=== PATIENT | male | born 1985 | race Caucasian/White ===

== ENCOUNTER 2022-06-10 10:01 | Outpatient (CLI) | payer OTHER | END 2022-06-10 10:04 | disposition home or self-care (01) | LOC: LAB 10:01 | PROVIDERS: ATTEND Obstetrics & Gynecology | DX: Z20.818 Contact with and (suspected) exposure to other bacterial communicable diseases (principal); Z20.828 Contact with and (suspected) exposure to other viral communicable diseases ==

== ENCOUNTER 2023-07-06 16:37 | Emergency (ER) | payer OTHER ==
[~2023-07-06] VITALS: Ht 160 cm; Wt 74.4 kg
[2023-07-06 18:23] LABS: HEMATOCRIT 35.8 % (39.0-48.0); HEMOGLOBIN 12.4 g/dL (13-16.00); MEAN CELL VOLUME 87.7 fL (80.0-100.00); MEAN CORPUSCULAR HEMOGLOBIN 30.3 pg (27.00-32.0); MEAN CORPUSCULAR HGB CONC 34.6 g/dl (32.0-36.0); PLATELET COUNT 309 K/uL (150-450); RED BLOOD COUNT 4.08 M/uL (4.00-6.00); RED CELL DISTRIBUTION WIDTH 12.1 % (11.5-14.5)
[2023-07-06 18:44] LABS: ALBUMIN 3.3 gm/dL (3.4-5.0); BILIRUBIN TOTAL 1.04 mg/dL (0.3-1.2); CALCIUM 9.5 mg/dL (8.5-10.1); CREATININE SERUM 0.81 mg/dL (0.70-1.30); GFR 106.65; GLOBULINA 5.5 G/DL (2.4-3.5); POTASSIUM 3.32 mEq/L (3.5-5.1); TOTAL PROTEIN 8.8 gm/dL (6.4-8.2)
== END 2023-07-06 20:12 | disposition home or self-care (01) ==
LOC: ER 16:37
PROVIDERS: General Practice
DX: R53.81 Other malaise (principal); R05.9 Cough, unspecified; Z20.822 Contact with and (suspected) exposure to COVID-19

== ENCOUNTER 2024-08-26 21:09 | Emergency (ER) | payer OTHER ==
[~2024-08-26] VITALS: Ht 160 cm; Wt 72.6 kg
[2024-08-26] MEDS ORDERED: DIPHENOXYLATE HCL/ATROPINE 1 UDTAB TABLET PO ONE (22:00)
[2024-08-26] MEDS ORDERED: FAMOTIDINE/PF 20 MG in 0.9 % SODIUM CHLORIDE 8 ML IV PUSH STA (22:00)
[2024-08-26] MEDS ORDERED: ONDANSETRON HCL 2 MG/ML VIAL IV ONE (22:00)
[2024-08-26] MEDS ORDERED: 0.9 % SODIUM CHLORIDE 1,000 ML IV SCH (22:00)
[2024-08-26] MEDS ORDERED: ONDANSETRON HCL 2 MG/ML VIAL ONE (22:36)
[2024-08-26] MEDS ORDERED: FAMOTIDINE/PF 20 MG/2 ML VIAL ONE (22:36)
[2024-08-26 22:55] LABS: HEMATOCRIT 45.2 % (39.0-48.0); HEMOGLOBIN 15.7 g/dL (13-16.00); MEAN CELL VOLUME 87.6 fL (80.0-100.00); MEAN CORPUSCULAR HEMOGLOBIN 30.3 pg (27.00-32.0); MEAN CORPUSCULAR HGB CONC 34.6 g/dl (32.0-36.0); PLATELET COUNT 218 K/uL (150-450); RED BLOOD COUNT 5.16 M/uL (4.00-6.00); RED CELL DISTRIBUTION WIDTH 12.4 % (11.5-14.5)
[2024-08-26 23:18] LABS: BILIRUBIN TOTAL 0.99 mg/dL (0.3-1.2); CALCIUM 9.1 mg/dL (8.5-10.1); CREATININE SERUM 0.91 mg/dL (0.70-1.30); GFR 92.75; GLOBULINA 4.2 G/DL (2.4-3.5); POTASSIUM 4.21 mEq/L (3.5-5.1); TOTAL PROTEIN 8.2 gm/dL (6.4-8.2)
== END 2024-08-27 03:56 | disposition home or self-care (01) ==
LOC: ER 21:12
PROVIDERS: General Practice
DX: B34.9 Viral infection, unspecified (principal); R11.2 Nausea with vomiting, unspecified; R19.7 Diarrhea, unspecified; Z20.822 Contact with and (suspected) exposure to COVID-19